=== PATIENT | female | born 1995 | race Caucasian/White ===

== ENCOUNTER → 2020-10-19 | Outpatient (CLI) | payer OTHER ==
[2020-10-22 00:09] LABS: CHLAMYDIA TRACHOMATIS, NAA Negative (Negative)
== END | disposition home or self-care (01) ==
LOC: LAB SHORT 18:41 → OLS 18:41
PROVIDERS: Nurse Practitioner Family
DX: Z91.89 Other specified personal risk factors, not elsewhere classified (principal)
CPT/HCPCS: 87491; 87591

== ENCOUNTER → 2020-12-27 | Outpatient (CLI) | payer OTHER ==
[2020-12-28 14:31] LABS: Candida species (DNA Probe) Negative (NEGATIVE); G. vaginalis (DNA Probe) Negative (NEGATIVE); T. vaginalis (DNA Probe) Negative (NEGATIVE)
== END ==
LOC: LAB 15:45 → LAB SHORT 15:45
PROVIDERS: Physician Assistant
DX: Z01.419 Encounter for gynecological examination (general) (routine) without abnormal findings (principal); N89.8 Other specified noninflammatory disorders of vagina
CPT/HCPCS: 87480; 87510; 87660; G0123

== ENCOUNTER 2025-03-14 06:04 | Day surgery (SDC) | payer OTHER ==
[~2025-03-14] VITALS: Ht 162.6 cm; Wt 121.6 kg
[2025-03-14] MEDS ORDERED: CeFAZolin Sodium 3,000 MG VIAL ONE (06:16)
[2025-03-14] MEDS ORDERED: ACET250 PO (06:25)
[2025-03-14] MEDS ORDERED: METFORMIN HCL500 M3 PO (06:25)
[2025-03-14] MEDS ORDERED: INOSITOL500 MG PO (06:26)
[2025-03-14] MEDS ORDERED: FISH OIL 1,0001 EA10 PO (06:27)
[2025-03-14] MEDS ORDERED: BERBERINE500 MG PO (06:27)
[2025-03-14] MEDS ORDERED: VITAMIN D325 MC3 (06:28)
[2025-03-14] MEDS ORDERED: Tranexamic Acid 100 ML IV ONE ×2 (06:58→10:30)
[2025-03-14] MEDS ORDERED: FentaNYL Citrate 50 MCG/ML 2 ML Injection ONE ×3 (07:06→10:44)
[2025-03-14] MEDS ORDERED: Rocuronium Bromide 10 MG/ML 5ML Injection IV ONE (07:08)
[2025-03-14] MEDS ORDERED: Dexamethasone Sod Phos 10 MG/ML 1ML VIAL XX ONE (07:30)
[2025-03-14] MEDS ORDERED: Ketamine HCl 100 MG / ML 5ML Vial ONE (07:42)
[2025-03-14] MEDS ORDERED: HYDROmorphone HCl/Pf 1MG SYR ONE ×2 (07:56→11:01)
[2025-03-14] MEDS ORDERED: Vancomycin HCl 1000 MG ADDvantage ONE (08:46)
[2025-03-14] MEDS ORDERED: Ondansetron HCl 2 MG / ML 2ML Vial IV ONE (09:45)
[2025-03-14] MEDS ORDERED: Bupivacaine HCl 0.25% 30 ML Injection ONE (10:15)
[2025-03-14] MEDS ORDERED: Ketorolac Tromethamine 30mg Vial ONE (10:34)
--- NOTE | 2025-03-14 10:42 | NUR ---
03/14/25 [email or web address] Faviola Garcia 30MG OF KETOROLAC GIVEN VIA IV, PUSHED SLOWLY. PT STATED THAT HER PAIN LEVEL WAS A 6/10 TO HER L KNEE. WCTM.
--- NOTE | 2025-03-14 11:09 | NUR ---
03/14/25 Faviola Kong PT WAS GIVEN MEDICATION FOR PAIN. PAIN LEVEL A 8/10. 0.5MG OF DILAUDID GIVEN VIA IV PUSHED SLOWLY. PT NOW RATES HER PAIN A 7/10.
[2025-03-14] MEDS ORDERED: Metoclopramide HCl 5MG / ML 2ML Vial ONE (11:16)
[2025-03-14 12:19] VITALS: BP 152/99
== END 2025-03-14 12:32 | disposition home or self-care (01) ==
LOC: ORSCSDS 06:04
PROVIDERS: Orthopaedic Surgery Sports Medicine
PROC: 0SBD4ZZ Excision of Left Knee Joint, Percutaneous Endoscopic Approach (ICD-10-PCS; principal; 2025-03-14 07:30)
PROC: 0LB Tendons, Excision (ICD-10-PCS; principal; 2025-03-14 07:30)
PROC: 0MRP47Z Replacement of Left Knee Bursa and Ligament with Autologous Tissue Substitute, Percutaneous Endoscopic Approach (ICD-10-PCS; principal; 2025-03-14 07:30)
DX: S83.512A Sprain of anterior cruciate ligament of left knee, initial encounter (principal); S83.212A Bucket-handle tear of medial meniscus, current injury, left knee, initial encounter; M25.461 Effusion, right knee; E28.2 Polycystic ovarian syndrome; E66.9 Obesity, unspecified; Z68.42 Body mass index [BMI] 45.0-49.9, adult; Z79.84 Long term (current) use of oral hypoglycemic drugs
CPT/HCPCS: 82947; C1713; C1776; C1889; J0166; J0690; J1100; J1171; J1885; J2405; J2704; J2765; J3010; J3373; J7120